=== PATIENT | male | born 1995 | race Hispanic/Latino ===

== ENCOUNTER 2017-04-19 22:57 | Emergency (ER) | payer SELFPAY | END 2017-04-20 00:18 | disposition left against medical advice (07) | LOC: ED 22:57 | DX: Z53.21 Procedure and treatment not carried out due to patient leaving prior to being seen by health care provider (principal) ==

== ENCOUNTER 2017-06-21 11:35 | Emergency (ER) | payer SELFPAY ==
[2017-06-21 11:59] VITALS: BP 108/61
--- NOTE | 2017-06-21 13:13 | Emergency Department Report ---
Blank Doc - Documentation Documentation: Discussed case with the Shakila Elizondo and agree with the plan. Did have a [id number] with this patient.
--- NOTE | 2017-06-21 13:15 | Emergency Department Report ---
Minor Respiratory - HPI Chief Complaint: Sore Throat Stated Complaint: SORE THROAT Time Seen by Provider: 06/21/17 12:51 Duration: 2 weeks Pain Location: Throat Severity: severe Minor Respiratory: Yes Sore Throat, Yes Sick Contacts, No Rhinorrhea, No Able to Tolerate Fluids, No Ear Pain, No Cough, No Hemoptysis, No Chest Pain, No Shortness of Breath, No Fever Other History: This is a 22 y.o. male that presents with sore throat for 2 weeks. He is having difficulty keeping solids down and it is very painful to swallow. He has not tried taking anything for symptoms. Denies drooling, fever, SOB, body aches, and chest pain. ED Review of Systems ROS: Stated complaint: SORE THROAT Other details as noted in HPI Constitutional: denies: chills, fever ENT: throat pain (sore), congestion. denies: ear pain, dental pain, hearing loss, epistaxis Respiratory: denies: cough, shortness of breath, wheezing Cardiovascular: denies: chest pain, palpitations Gastrointestinal: denies: abdominal pain, nausea, diarrhea Skin: denies: rash, lesions Neurological: denies: headache, weakness, paresthesias Psychiatric: denies: anxiety, depression ED Past Medical Hx - Past Medical History Previous Medical History?: No - Surgical History Past Surgical History?: No - Social History Smoking Status: Current Every Day Smoker Substance Use Type: Alcohol, Marijuana, Other - Medications Home Medications: Home Medications Medication Instructions Recorded Confirmed Last Taken Type Nystas/Diphen/Xyl Visc/Mylanta 30 ml MM Q4H PRN #120 ml 06/21/17 Unknown Rx [Magic Mouthwash] Penicillin V Potassium 500 mg PO BID 10 Days #20 tablet 06/21/17 Unknown Rx Minor Respiratory Exam - Exam General: Vital signs noted. No distress. Alert and acting appropriately. HEENT: Yes Pharyngeal Erythema, Yes Pharyngeal Exudates (tonsils swollen, uvula midline), Yes Moist Mucous Membranes, Yes Rhinorrhea, No Conjuctival Injection, No Frontal Tenderness, No Maxillary Tenderness Ear: Neither TM Bulge, Neither TM Erythema, Neither EAC Pain Neck: Yes Adenopathy (swollen cervicl lymph nodes, mobile, tender to palpation) , Yes Supple Lungs: Yes Good Air Exchange, No Wheezes, No Ronchi, No Stridor, No Cough, No Labored Respirations, No Retractions, No Use of Accessory Muscles, No Other Abnormal Lung Sounds Heart: Yes Regular, No Murmur Abdomen: Yes Normal Bowel Sounds, No Tenderness, No Peritoneal Signs Skin: No Rash, No Edema Neurologic: Alert and oriented, no deficits. Musculoskeletal: Unremarkable. ED Course Vital Signs 06/21/17 11:55 Temperature 98.7 F Pulse Rate 104 H Respiratory 20 Rate Blood Pressure 108/61 O2 Sat by Pulse 100 Oximetry ED Medical Decision Making - Medical Decision Making This is a 22 y.o. male that presents with sore throat with white patches for 2 weeks. Patient examined by me and stable. No distress noted. Vitals stable. Given bicillin I-A 1.2 mL IM, decadron 10 mg IM once in ER. Start penicillin V 500 mg po bid x 10 days for strep throat, magic mouth wash for thrush. Take tylenol or ibuprofen for pain. Discussed plan with patient and he agreed with plan to treat outpatient. Discharged home. Return to work tomorrow. Follow up with PCP in 48-72 hours. Critical care attestation.: If time is entered above; I have spent that time in minutes in the direct care of this critically ill patient, excluding procedure time. ED Disposition Clinical Impression: Thrush, oral, Strep pharyngitis Disposition: - TO HOME OR SELFCARE Is pt being admited?: No Does the pt Need Aspirin: No Condition: Stable Instructions: Strep Throat (ED), Oral Candidiasis (ED) Additional Instructions: Expect symptoms to improve within 3 or 4 days. There is no need for bed rest or isolation. Use tylenol or ibuprofen for symptoms of sore throat, headache, and fever. Return to work in 24 hours of taking antibiotics. Follow up with Primary Care Provider in 48-72 hours. Prescriptions: Nystas/Diphen/Xyl Visc/Mylanta [Magic Mouthwash] 30 ml MM Q4H PRN #120 ml PRN Reason: thrush Penicillin V Potassium 500 mg PO BID 10 Days #20 tablet Referrals: [facility] [Outside] - 3-5 Days [facility] [Outside] - 3-5 Days [facility] [Outside] - 3-5 Days Time of Disposition: 13:50 Print Language: TAMAZIGHT
[2017-06-21] MEDS ORDERED: BICILLIN L-A IM ONE (13:30)
[2017-06-21] MEDS ORDERED: DECADRON IV ONE (13:30)
[2017-06-21] MEDS ORDERED: DECADRON IM ONE (13:45)
== END 2017-06-21 14:40 | disposition home or self-care (01) ==
LOC: ED 11:35
DX: J02.0 Streptococcal pharyngitis (principal); B37.0 Candidal stomatitis; F17.200 Nicotine dependence, unspecified, uncomplicated; F12.10 Cannabis abuse, uncomplicated
CPT/HCPCS: 96372; 99282; J0561; J1100